=== PATIENT | female | born 1930 | race Caucasian/White ===

== ENCOUNTER 2019-07-21 14:04 | Emergency (ER) | payer OTHER ==
[~2019-07-21] VITALS: Ht 162.6 cm; Wt 63.4 kg
[~2019-07-21 14:04] MED LIST: ALEN70TA6 PO; DILT240C80 PO; DILT60CA PO; DOCU100C33 PO; FERR-51 PO; FLUO20CA8 PO; FLUO40CA2 PO; FLUT1DIS3 INH; LETR2.5T PO; LEVO500T8 PO; LORA-446 PO; METO50TA6 PO; SENN-177 PO; SIMV20TA3 PO; TIOT18CA INH; albuterol INH
--- NOTE | 2019-07-21 14:14 | NUR ---
BIB AMBULANCE FROM HOME, PT STATES "FELL ASLEEP AND WOKE UP IN ODD POSITION, NECK CRAMPED, FEEL PAIN ACROSS MY SHOULDERS AND UP MY NECK THIS HAS HAPPENED BEFORE." NEURO INTACT. SPEECH CLEAR. DENIES INJURY OR TRAUMA. CMS INTACT. BILATERAL RADIAL AND PEDAL PULSES NORMAL AND STRONG. RATES PAIN 10/10. CONT PULSE OX, BP, CARDIAC MONITORS APPLIED. ST ON MONITOR. VSS. CALL LIGHT IN REACH. FALL PRECAUTIONS IN PLACE. SIDE RAILS UPX2. PT ABLE TO MOVE ALL EXTREMITIES WITHOUT DIFFICULTY, MOVING AND TURNING HEAD ON OWN. ABLE TO LIFT UPPER BODY. RAYMOND LORA AT BEDSIDE FOR EVALUATION, AWAITING ORDERS.
--- NOTE | 2019-07-21 14:16 | NUR ---
NO CODE NEURO PER RAYMOND VIVEROS TO EVALUATE PT.
[2019-07-21] MEDS ORDERED: CYCLOBENZAPRINE 10 MG TABLET PO SCH (14:30)
[2019-07-21] MEDS ORDERED: ACETAMINOPHEN 325 MG TABLET PO ONE (14:30)
[2019-07-21] MEDS ORDERED: KETOROLAC 30 MG/1 ML IM ONE (14:30)
--- NOTE | 2019-07-21 14:32 | NUR ---
PHARMACY CALLED, UNABLE TO MEDICATE PT UNTIL ORDERS VERIFIED, COMPUTER DIFFICULTY PER PHARMACY STAFF, RAYMOND LORA AWARE, PT REPOSITIONED FOR COMFORT. WARM BLANKET SUPPORTING HEAD AND NECK PER REQUEST, PT REFUSES ICE PACK. WARM BLANKETS PROVIDED FOR COMFORT. PT ABLE TO LIFT OWN UPPER BODY HOLDING BED RAILS TO PLACE BLANKET BEHIND BACK "THIS IS MUCH BETTER THAN I WAS DOING AT HOME." VSS. CALL LIGHT IN REACH. FALL PRECAUTIONS IN PLACE.
--- NOTE | 2019-07-21 14:42 | NUR ---
DR. VIVEROS AT BEDSIDE FOR EVALUATION.
--- NOTE | 2019-07-21 14:45 | NUR ---
NO CODE NEURO PER DR. VIVEROS
--- NOTE | 2019-07-21 14:59 | NUR ---
BEDSIDE REPORT AND CARE TO RAJI LANDON. DISCUSSED PT POC WITH CHEMICAL EDUCATOR KEITH, PT MOVED FROM RME RM 9 TO ED CORE ROOM 12 FOR CLOSER MONITORING PER DR. VIVEROS AND RAYMOND LORA REQUEST.
[2019-07-21] MEDS ORDERED: SODIUM CHLORIDE 0.9% 1,000ML IVBOLUS ONE (15:00)
[2019-07-21] MEDS ORDERED: SODIUM CHLORIDE FLUSH 10ML SYR IVF ONE (15:00)
[2019-07-21 15:15] LABS: ALANINE AMINOTRANSFERASE 11 U/L (12-78); ALBUMIN 2.9 g/dL (3.4-5.0); ANION GAP 8 mmol/L (5-15); CHLORIDE 114 mmol/L (98-107); CREATININE 1.09 mg/dL (0.55-1.02)
[2019-07-21 15:17] LABS: ALKALINE PHOSPHATASE 70 U/L (45-117); BILIRUBIN,TOTAL 0.4 mg/dL (0.2-1.0); TOTAL PROTEIN 6.3 g/dL (6.4-8.2)
[2019-07-21 15:42] LABS: BASOPHILS # (AUTO) 0.02 x10^3/uL (0-0.1); BASOPHILS % (AUTO) 0 % (0-1); EOSINOPHILS # (AUTO) 0.24 x10^3/uL (0-0.4); EOSINOPHILS % (AUTO) 3 % (1-7); LYMPHOCYTES # (AUTO) 0.74 x10^3/uL (1-3.4); LYMPHOCYTES % (AUTO) 9 % (22-44); MD SCAN; MEAN CORPUSCULAR HEMOGLOBIN 24.3 pg (27.0-34.8); MEAN CORPUSCULAR HGB CONC 30.3 g/dL (32.4-35.8); MEAN CORPUSCULAR VOLUME 80.2 fL (80-100); MONOCYTES # (AUTO) 0.63 x10^3/uL (0.2-0.8); MONOCYTES % (AUTO) 8 % (2-9); NEUTROPHILS # (AUTO) 6.51 x10^3/uL (1.8-6.8); NEUTROPHILS % (AUTO) 80 % (42-75); PLATELET COUNT 138 x10^3/uL (130-400); RED BLOOD COUNT 4.68 x10^6/uL (3.82-5.3)
[2019-07-21] MEDS ORDERED: OMNIPAQUE 350 MG/ML, 100ML BOTTLE ONE (16:51)
--- NOTE | 2019-07-21 16:56 | NUR ---
report from DIPESH Rock, pt in scan at this time.
--- NOTE | 2019-07-21 17:00 | NUR ---
pt returned from CT in [facility], RN to obtain UA & administer medication per MAR
[2019-07-21] MEDS ORDERED: ACETAMINOPHEN 325 MG TABLET ONE (17:07)
[2019-07-21] MEDS ORDERED: KETOROLAC 30 MG/1 ML ONE (17:07)
--- NOTE | 2019-07-21 17:42 | NUR ---
Pt danielito barrera'ed, sample walked to lab.
--- NOTE | 2019-07-21 18:15 | NUR ---
lab called about lack of UA results per tech UA is running, pt in bed, nad, awaiting UA results, no needs at this time. wctm
[2019-07-21 18:21] LABS: MICROSCOPIC AUTO
[2019-07-21 18:22] LABS: CULTURE INDICATED? YES
--- NOTE | 2019-07-21 18:59 | NUR ---
Pt's family member called t retrieve pt from ED, awaiting DC paperwork. bedside report to DIPESH Cano, pt care transferred at this time
[2019-07-21] MEDS ORDERED: NITROFURANTOIN (MACROBID) 100 MG CAPSULE PO ONE (19:00)
[2019-07-21] MEDS ORDERED: NITROFURANTOIN (MACROBID) 100 MG CAPSULE ONE (19:00)
[2019-07-21] MEDS ORDERED: CYCLOBENZAPRINE 10 MG TABLET PO ONE (19:00)
[2019-07-21] MEDS ORDERED: FOSFOMYCIN 3 GM PACKET PO ONE (19:30)
[2019-07-21] MEDS ORDERED: CYCLOBENZAPRINE 10 MG TABLET ONE (19:36)
[2019-07-21] MEDS ORDERED: FOSFOMYCIN 3 GM PACKET ONE (19:37)
--- NOTE | 2019-07-21 19:42 | NUR ---
Assumed care of pt for discharge home, waiting for ride. Pt medicated per MD orders prior to d/c. vitals stable.
[2019-07-21 20:42] VITALS: BP 115/81
== END 2019-07-21 20:44 | disposition home or self-care (01) ==
LOC: ED 18:12
DX: S16.1XXA Strain of muscle, fascia and tendon at neck level, initial encounter (principal); N30.00 Acute cystitis without hematuria; I10 Essential (primary) hypertension; J44.9 Chronic obstructive pulmonary disease, unspecified; Z87.891 Personal history of nicotine dependence; Z85.118 Personal history of other malignant neoplasm of bronchus and lung; Z85.3 Personal history of malignant neoplasm of breast; X58.XXXA Exposure to other specified factors, initial encounter; Y93.89 Activity, other specified; Y92.89 Other specified places as the place of occurrence of the external cause; Y99.8 Other external cause status
CPT/HCPCS: 36415; 70450; 70496; 70498; 72125; 80053; 81001; 85025; 87077; 87086; 87186; 93005; 96372; 99284; J1885; J7030; Q9967